=== PATIENT | male | born 1955 | race Caucasian/White ===

== ENCOUNTER 2020-07-05 12:38 | Emergency (ER) | payer SELFPAY ==
[2020-07-05 12:43] VITALS: BP 139/80
--- NOTE | 2020-07-05 12:55 | ER Document Report ---
ED General - General Chief Complaint: Finger Injury Stated Complaint: FINGER INJURY Notes: Patient is a 65-year-old white male with no significant past medical history presents the emergency department the chief complaint of left fifth digit pain after injury that occurred yesterday. He was holding a block up trying to swing a hammer to fence when the block shifted and the hammer struck his fifth digit between the MCP and PIP. Patient reports he was a little sore last night but this morning woke up and noticed some swelling just proximal. States his allie taped the fingers and he came to the emergency department for evaluation. little bit of a numb sensation in the digit but denies any tingling. Denies any weakness or decreased range of motion. - Related Data Allergies/Adverse Reactions: oseltamivir [From Tamiflu] Allergy (Verified 07/05/20 12:51) Penicillins Allergy (Verified 07/05/20 12:51) Sulfa (Sulfonamide Antibiotics) Allergy (Verified 07/05/20 12:51) Past Medical History - Social History Smoking Status: Current Every Day Smoker Family History: Reviewed & Not Pertinent Review of Systems - Review of Systems Constitutional: denies: Fever EENT: denies: Difficulty swallowing Cardiovascular: denies: Chest pain Respiratory: denies: Short of breath Gastrointestinal: denies: Abdominal pain Genitourinary: denies: Pain Male Genitourinary: No symptoms reported Musculoskeletal: Joint pain Skin: denies: Change in color Hematologic/Lymphatic: denies: Easy bleeding Neurological/Psychological: Numbness Physical Exam - Vital signs Vitals: Temp Pulse Resp BP Pulse Ox 98.9 F 93 16 139/80 H 96 07/05/20 12:41 07/05/20 12:41 07/05/20 12:41 07/05/20 12:41 07/05/20 12:41 - General General appearance: Appears well, Alert In distress: None - Respiratory Respiratory status: No respiratory distress Chest status: Nontender Breath sounds: Normal Chest palpation: Normal - Cardiovascular Rhythm: Regular Heart sounds: Normal auscultation - Extremities Hand: Other - Full passive range of motion of the left hand in all the digits of the left hand. There is tenderness to the proximal fifth phalanx between the PIP and DIP. No obvious deformity, step-off or crepitus. A mild amount of swelling noted over the fourth and fifth MCPs of the left. Good capillary refill distally. 2+ radial - Neurological Neuro grossly intact: Yes Cognition: Normal Orientation: AAOx4 - Psychological Associated symptoms: Normal affect, Normal mood - Skin Skin Temperature: Warm Skin Moisture: Dry Skin Color: Normal Course - Re-evaluation Re-evalutation: 07/05/20 13:23 X-ray showing proximal phalanx fracture. Patient placed in a long aluminum splint with the digit allie taped to its 07/05/20 13:26 allie taped to its neighbor. Will refer to orthopedics. Given a short course of pain medications. Discussed with him the importance of outpatient follow-up and advised to return here any ER immediately with any new, persistent or worsening symptoms. He verbalized understood and agreed. - Vital Signs Vital signs: Temp Pulse Resp BP Pulse Ox 98.9 F 93 16 139/80 H 96 07/05/20 12:52 07/05/20 12:41 07/05/20 12:41 07/05/20 12:41 07/05/20 12:41 Discharge - Discharge Clinical Impression: Proximal phalanx fracture of finger Qualifiers: Encounter type: initial encounter Finger: little finger Fracture type: closed Fracture alignment: displaced Laterality: unspecified laterality Qualified Code(s): S62.618A - Displaced fracture of proximal phalanx of other finger, initial encounter for closed fracture Condition: Stable Disposition: HOME, SELF-CARE Instructions: Fractured Finger ([facility]) Additional Instructions: Follow-up with your regular doctor in 2 to 3 days for reevaluation. Return here or any ER immediately with any new, persistent or worsening symptoms. Prescriptions: Hydrocodone/Acetaminophen [Marshall 5-325 Tablet] 1 each PO Q6 PRN #12 tablet PRN Reason: Referrals: VAIBHAV GALLEGOS MD [ACTIVE STAFF] - Follow up as needed
--- NOTE | 2020-07-05 13:42 | RADIOLOGY REPORT (SQ) ---
EXAM DESCRIPTION: FINGER LEFT IMAGES COMPLETED DATE/TIME: 07/05/2020 1:16 pm REASON FOR STUDY: trauma 5th digit COMPARISON: None. NUMBER OF VIEWS: Three views. TECHNIQUE: AP, lateral, and oblique images acquired of the left fifth finger. LIMITATIONS: None. FINDINGS: MINERALIZATION: Normal. BONES: There is a comminuted fracture involving the 5th digit proximal phalanx mid diaphysis. Longit udinal components extend proximally without discrete intra-articular extension demonstrated. The dom inant fracture fragments demonstrate moderate angulation (apex projecting palmar/volar). SOFT TISSUES: Soft tissue swelling surrounds the injury site. OTHER: Incidental note is made of a background of degenerative changes most significantly affecting t he 2nd and 3rd metacarpal phalangeal joints. IMPRESSION: Comminuted angulated fracture of the 5th digit proximal phalanx mid diaphysis. TECHNICAL DOCUMENTATION: JOB ID: [id number] 2010 [employer]- All Rights Reserved Reading location - IP/workstation name: [email or web address]
== END 2020-07-05 13:33 | disposition home or self-care (01) ==
LOC: ER 12:38
PROC: 2W3KX1Z Immobilization of Left Finger using Splint (ICD-10-PCS; principal; 2020-07-05)
DX: S62.618A Displaced fracture of proximal phalanx of other finger, initial encounter for closed fracture (principal); M79.645 Pain in left finger(s); R20.0 Anesthesia of skin; W22.8XXA Striking against or struck by other objects, initial encounter; F17.200 Nicotine dependence, unspecified, uncomplicated; Z88.0 Allergy status to penicillin; Z88.2 Allergy status to sulfonamides; Z88.8 Allergy status to other drugs, medicaments and biological substances
CPT/HCPCS: 99283